=== PATIENT | male | born 1975 | race African-American/Black ===

== ENCOUNTER 2016-10-29 11:42 | Emergency (ER) | payer SELFPAY ==
[~2016-10-29] VITALS: Ht 167.6 cm; Wt 81.8 kg
[~2016-10-29 11:42] MED LIST: PREDNISONE20 MG PO
[2016-10-29 11:44] VITALS: BP 125/82; TEMP 96.7
[2016-10-29] MEDS ORDERED: PROAIR HFA0.09 MG/AC IH (13:31)
[2016-10-29] MEDS ORDERED: NEB MC (13:31)
[2016-10-29] MEDS ORDERED: PREDNISONE20 MG PO (13:31)
[2016-10-29] MEDS ORDERED: AEROCHAMBER1 DEV IH (13:31)
[2016-10-29] MEDS ORDERED: ALBUTEROL0.83 MG/ML IH (13:31)
[2016-10-29 13:58] VITALS: PULSE 88
== END 2016-10-29 13:56 | disposition home or self-care (01) ==
LOC: COL.ER 11:42
DX: J45.901 Unspecified asthma with (acute) exacerbation (principal)
CPT/HCPCS: J7512

== ENCOUNTER 2017-04-26 12:40 | Emergency (ER) | payer SELFPAY ==
[~2017-04-26] VITALS: Ht 167.6 cm; Wt 81.8 kg
[~2017-04-26 12:40] MED LIST changes: +AEROCHAMBER1 DEV IH; +ALBUTEROL0.83 MG/ML IH; +NEB MC; +PROAIR HFA0.09 MG/AC IH
[2017-04-26 12:45] VITALS: BP 145/114; PULSE 78; TEMP 97.9
[2017-04-26] MEDS ORDERED: PEN-VEE K500 MG PO (13:17)
[2017-04-26] MEDS ORDERED: NORCO 325 MG-51 TAB PO (13:17)
== END 2017-04-26 13:21 | disposition home or self-care (01) ==
LOC: COL.ER 12:40
DX: K08.89 Other specified disorders of teeth and supporting structures (principal)

== ENCOUNTER 2017-04-27 19:42 | Emergency (ER) | payer SELFPAY ==
[~2017-04-27] VITALS: Ht 167.6 cm; Wt 81.8 kg
[~2017-04-27 19:42] MED LIST changes: +NORCO 325 MG-51 TAB PO; +PEN-VEE K500 MG PO
[2017-04-27 19:45] VITALS: BP 140/86; PULSE 87; TEMP 97.7
== END 2017-04-27 21:30 | disposition home or self-care (01) ==
LOC: COL.ER 19:42
DX: K04.7 Periapical abscess without sinus (principal); Z88.0 Allergy status to penicillin; Z88.6 Allergy status to analgesic agent

== ENCOUNTER 2017-06-27 23:31 | Emergency (ER) | payer SELFPAY ==
[~2017-06-27] VITALS: Ht 167.6 cm; Wt 80.9 kg
[2017-06-27 23:34] VITALS: TEMP 97
[2017-06-27] MEDS ORDERED: PREDNISONE20 MG PO (23:54)
[2017-06-27] MEDS ORDERED: PROAIR HFA0.09 MG/AC IH (23:54)
[2017-06-28 00:24] VITALS: BP 124/74; PULSE 74
== END 2017-06-28 00:33 | disposition home or self-care (01) ==
LOC: COL.ER 23:31
DX: J45.901 Unspecified asthma with (acute) exacerbation (principal)
CPT/HCPCS: J7512

== ENCOUNTER 2017-08-30 09:14 | Emergency (ER) | payer SELFPAY ==
[~2017-08-30] VITALS: Ht 167.6 cm; Wt 81.4 kg
[2017-08-30 09:22] VITALS: TEMP 97.6
[2017-08-30] MEDS ORDERED: ALBUTEROL0.83 MG/ML IH (09:37)
[2017-08-30] MEDS ORDERED: PROAIR HFA0.09 MG/AC IH (09:37)
[2017-08-30] MEDS ORDERED: PREDNISONE20 MG PO (09:37)
[2017-08-30 10:33] VITALS: BP 131/79; PULSE 74
== END 2017-08-30 10:34 | disposition home or self-care (01) ==
LOC: COL.ER 09:14
DX: J45.901 Unspecified asthma with (acute) exacerbation (principal)
CPT/HCPCS: J7512

== ENCOUNTER 2017-10-23 19:21 | Emergency (ER) | payer SELFPAY ==
[~2017-10-23] VITALS: Ht 167.6 cm; Wt 80.3 kg
[2017-10-23 19:29] VITALS: TEMP 98.4
[2017-10-23 22:38] VITALS: BP 138/77; PULSE 77
[2017-10-23] MEDS ORDERED: PREDNISONE10 MG PO (22:43)
[2017-10-23] MEDS ORDERED: ALBUTEROL0.83 MG/ML IH (22:43)
[2017-10-23] MEDS ORDERED: PROAIR HFA0.09 MG/AC IH (22:43)
== END 2017-10-23 23:25 | disposition home or self-care (01) ==
LOC: COL.ER 19:21
DX: J45.901 Unspecified asthma with (acute) exacerbation (principal)
CPT/HCPCS: J7512

== ENCOUNTER 2018-05-17 03:43 | Emergency (ER) | payer BC ==
[~2018-05-17] VITALS: Ht 167.6 cm; Wt 82.7 kg
[~2018-05-17 03:43] MED LIST changes: +PREDNISONE10 MG PO
[2018-05-17 03:53] VITALS: BP 131/81; TEMP 97.5
[2018-05-17 04:20] VITALS: PULSE 57
== END 2018-05-17 04:20 | disposition home or self-care (01) ==
LOC: COL.ER 03:43
DX: S00.03XA Contusion of scalp, initial encounter (principal); W22.8XXA Striking against or struck by other objects, initial encounter; Y92.59 Other trade areas as the place of occurrence of the external cause

== ENCOUNTER 2018-06-29 03:55 | Emergency (ER) | payer BC ==
[~2018-06-29] VITALS: Ht 167.6 cm; Wt 81.8 kg
[2018-06-29 04:01] VITALS: BP 125/78; TEMP 96.6
[2018-06-29] MEDS ORDERED: PROAIR HFA0.09 MG/AC IH ×2 (04:33→04:38)
[2018-06-29] MEDS ORDERED: PREDNISONE20 MG PO (04:38)
[2018-06-29] MEDS ORDERED: ALBUTEROL0.83 MG/ML IH (04:43)
[2018-06-29 05:25] VITALS: PULSE 98
== END 2018-06-29 05:25 | disposition home or self-care (01) ==
LOC: COL.ER 03:55
DX: J45.901 Unspecified asthma with (acute) exacerbation (principal)
CPT/HCPCS: J7512

== ENCOUNTER 2019-11-21 09:37 | Emergency (ER) | payer BC ==
[~2019-11-21] VITALS: Ht 167.6 cm; Wt 84.1 kg
[2019-11-21 09:43] VITALS: BP 133/92; PULSE 64; TEMP 97.4
[2019-11-21] MEDS ORDERED: PROVENTIL0.09 MG/A1 IH (18:50)
[2019-11-22] MEDS ORDERED: PROVENTIL0.09 MG/A1 IH (14:27)
[2019-11-22] MEDS ORDERED: ALBUTEROL0.83 MG/ML IH (14:28)
[2019-11-22] MEDS ORDERED: PREDNISONE20 MG PO (14:29)
[2019-11-22] MEDS ORDERED: ZEBETA 5MG5 MG PO (14:31)
== END 2019-11-21 10:06 | disposition left against medical advice (07) ==
LOC: COL.ER 09:37
DX: R06.02 Shortness of breath (principal); Z53.29 Procedure and treatment not carried out because of patient's decision for other reasons

== ENCOUNTER 2020-06-26 05:01 | Emergency (ER) | payer MEDICAID ==
[~2020-06-26] VITALS: Ht 167.6 cm; Wt 86.4 kg
[~2020-06-26 05:01] MED LIST changes: +PROVENTIL0.09 MG/A1 IH; +ZEBETA 5MG5 MG PO
[2020-06-26 05:08] VITALS: BP 135/92; TEMP 97.7
[2020-06-26] MEDS ORDERED: ALBUTEROL0.83 MG/ML IH (06:10)
[2020-06-26] MEDS ORDERED: PREDNISONE20 MG PO (06:10)
[2020-06-26 06:33] VITALS: PULSE 70
== END 2020-06-26 06:33 | disposition home or self-care (01) ==
LOC: COL.ER 05:01
DX: J45.901 Unspecified asthma with (acute) exacerbation (principal); Z79.899 Other long term (current) drug therapy
CPT/HCPCS: J7512

== ENCOUNTER 2021-03-13 13:26 | Emergency (ER) | payer MEDICAID ==
[~2021-03-13] VITALS: Ht 167.6 cm; Wt 81.8 kg
[2021-03-13 13:53] VITALS: BP 141/10; PULSE 77
[2021-03-13 14:45] VITALS: TEMP 98
== END 2021-03-13 14:55 | disposition home or self-care (01) ==
LOC: COL.ER 13:26
DX: U07.1 COVID-19 (principal); J45.909 Unspecified asthma, uncomplicated; Z79.899 Other long term (current) drug therapy

== ENCOUNTER 2021-06-21 00:05 | Emergency (ER) | payer MEDICAID ==
[~2021-06-21] VITALS: Ht 170.2 cm; Wt 83.2 kg
[2021-06-21 00:10] VITALS: TEMP 97.9
[2021-06-21] MEDS ORDERED: PREDNISONE20 MG PO (01:25)
[2021-06-21 01:39] VITALS: BP 146/78; PULSE 76
== END 2021-06-21 01:39 | disposition home or self-care (01) ==
LOC: COL.ER 00:05
DX: J45.901 Unspecified asthma with (acute) exacerbation (principal); Z91.14 Patient's other noncompliance with medication regimen
CPT/HCPCS: J7512

== ENCOUNTER 2022-06-24 00:34 | Emergency (ER) | payer MEDICAID ==
[~2022-06-24] VITALS: Ht 167.6 cm; Wt 83.6 kg
[~2022-06-24 00:34] MED LIST changes: +FLEXERIL 1010 MG/TAB PO; +NAPROSYN500 MG PO
[2022-06-24 00:38] VITALS: TEMP 98.4
[2022-06-24] MEDS ORDERED: PREDNISONE20 MG PO (00:56)
[2022-06-24] MEDS ORDERED: IPRATROPIUM BROM3 M1 IH (01:33)
[2022-06-24 02:30] VITALS: BP 140/81; PULSE 100
== END 2022-06-24 02:40 | disposition home or self-care (01) ==
LOC: COL.ER 00:34
DX: J45.901 Unspecified asthma with (acute) exacerbation (principal); Z28.310 Unvaccinated for COVID-19
CPT/HCPCS: J7512